=== PATIENT | female | born 1985 | race Caucasian/White ===

== ENCOUNTER 2022-09-02 15:42 | Emergency (ER) | payer BC, SELFPAY ==
[2022-09-02 15:44] VITALS: BP 198/121; PULSE 123; RESP 16; TEMP 36.6; O2SAT 98
[2022-09-02 15:49] VITALS: BP 188/127; PULSE 117
--- NOTE | 2022-09-02 18:00 | ECG_ITS ---
Measurements Intervals [place] Rate: 101 P: 55 SC: 152 QRS: -6 QRSD: 83 T: 31 QT: 336 QTc: 436 Interpretive Statements SINUS TACHYCARDIA POSSIBLE LEFT ATRIAL ENLARGEMENT BORDERLINE ECG NO PREVIOUS ECG AVAILABLE FOR COMPARISON Electronically Signed On 09-03-2022 14:05:54 INTERDISCIPLINARY PROFESSOR by Fausto Franklin M.D.
--- NOTE | 2022-09-02 18:17 | ED.RECABL ---
HPI - Recheck/Abnormal Lab/Rx General Chief Complaint: Recheck/Abnormal Lab/Rx Stated Complaint: elevated BP -- 178/120 from express care Time Seen by Provider: 09/02/22 17:56 Source: patient and RN notes reviewed Mode of arrival: ambulatory Limitations: no limitations History of Present Illness HPI narrative: This is a 36 year old female with history of hypertension who presents for evaluation of elevated blood pressure. PAtient normally takes Labetolol 100 mg daily for her hypertension but she has not taken today. She has been dealing with congestion, sore throat so she went to urgent care for evaluated of strep throat. She was found to have elevated blood pressure so it was recommended for her to come to ER. She states she had sinus headache last night but her headache resolved. She denies chest pain, dizziness, sob, or headache today. She reports her blood pressure is normally elevated like this when she goes to her doctor. She is unsure if she is normally tachycardic, but she denies palpitations or heart racing. Related Data Allergies Allergy/AdvReac Type Severity Reaction Status Date / Time bupropion Allergy Mild RASH Verified 09/02/22 17:58 Sulfa (Sulfonamide Allergy Unknown Unknown Verified 09/02/22 17:58 Antibiotics) PENICILLIN Allergy Unknown Unknown Uncoded 09/02/22 17:58 Review of Systems Constitutional: Constitutional: Denies weakness ENT: Reports nasal congestion and Reports sore throat Cardiovascular: Cardiovascular: Denies syncope, Denies rapid heart rate, Denies irregular heart rhythm, Denies leg edema and Denies dyspnea Respiratory: Respiratory: Denies chest congestion, Denies hemoptysis, Denies excessive phlegm production and Denies dyspnea Gastrointestinal: Gastrointestinal: Denies abdominal pain, Denies hematochezia, Denies diarrhea and Denies vomiting Genitourinary: Genitourinary: Denies hematuria and Denies dysuria Musculoskeletal: Musculoskeletal: Denies joint swelling, Denies loss of height and Denies muscle weakness Neurologic: Denies syncope, Denies focal weakness and Denies weakness PMFSH Past Medical History Medical History Hypertension Social History Social History Smoking status: Never smoker Exam Const: General: no acute distress and alert Nutritional Appearance: well nourished Orientation/consciousness: patient oriented x3 Limitations: no limitations HENMT: Head: normal to inspection Eyes: EOM: EOMs intact bilaterally Chest: Chest palpation & inspection: normal inspection of the chest Resp: Effort & Inspection: normal respiratory effort Auscultation: clear to auscultation bilaterally Cardio: Rate: tachycardic Rhythm: regular rhythm Heart sounds: no murmurs GI: GI Palp: Yes Soft to palpation, No Tenderness to palpation present (GI), No Guarding due to palpation present (GI) and No Rigid due to palpation Auscultation: normal bowel sounds Skin: General skin exam: normal color Rashes: no rashes Wounds: no wounds Neuro: General: patient oriented x3, moves all extremities and CN's II-XI intact bilaterally Cranial nerves: Yes Nystagmus not present Speech: normal speech Gait exam (Neuro): Normal gait present Extrem: General: normal to inspection Psych: Mental Status: mental status grossly normal Affect: normal affect Attitude: cooperative Course Reevaluation(s) Reevaluation #1: PAtient has asymptomatic hypertension. She will be discharged for outpatient treatment. She has antibiotics prescribed for strep throat from the urgent care. She was given oral potassium for low potassium 3.3 Date: 09/02/22 Time: 20:14 Vital Signs Vital signs: Vital Signs Temperature 98 F 09/02/22 15:44 Pulse Rate 123 H 09/02/22 15:44 Respiratory Rate 16 09/02/22 15:44 Blood Pressure 198/121 H 09/02/22 15:44 Pulse Oximetry 98 09/02/22 15:44 Oxygen Delive
[2022-09-02 18:37] LABS: Basophils Percent Auto 0.2 % (0.2-1.2); Eosinophils Absolute Auto 0.1 K/mm3 (0-0.3); Eosinophils Percent Auto 0.3 % (0-4.4); Hematocrit 38.4 % (37.0-47.0); Hemoglobin 13.2 g/dL (12.0-15.0); Immature Granulocyte Absolute 0.04 K/mm3 (0.00-0.031); Immature Granulocyte Percent A 0.3 % (0-0.5); Lymphocytes Absolute Auto 1.63 K/mm3 (0.9-3.2); Lymphocytes Percent Auto 11.2 % (18.3-44.2); Mean Corpuscular HGB Conc 34.4 g/dl (32-36); Mean Corpuscular Hemoglobin 30.8 pg (26-34); Mean Corpuscular Volume 89.5 fl (80-100); Mean Platelet Volume 8.9 fl (7.4-10.4); Monocytes Percent Auto 6.6 % (2.6-8.5); Neutrophils Absolute Auto 11.9 K/mm3 (1.3-6.7); Neutrophils Percent Auto 81.4 % (45.5-73.1); Platelet Count Result 342 k/mm3 (150-375); Red Blood Count 4.29 M/mm3 (4.2-5.4); Red Cell Distribution Width 12.3 % (11.5-14.5); White Blood Count 14.6 K/mm3 (4.5-10.0)
[2022-09-02 18:48] VITALS: PULSE 120
[2022-09-02] MEDS: LABETALOL HCL 100 MG TABLET PO (18:48)
[2022-09-02 18:50] LABS: Platelet Estimate Adequate (Adequate); Schistocytes None Seen (NORMAL)
[2022-09-02 19:26] VITALS: BP 164/119; PULSE 99; RESP 16; O2SAT 100
[2022-09-02 19:53] LABS: Alanine Aminotransferase 21 U/L (6-35); Albumin Level 4.6 g/dL (3.5-5.1); Alkaline Phosphatase 91 U/L (38-126); Anion Gap 5 mmol/L (8-16); Aspartate Amino Transferase 24 U/L (14-36); Bilirubin,Total 0.6 mg/dL (0.2-1.3); Blood Urea Nitrogen 8 mg/dL (7-17); Carbon Dioxide 27 mmol/L (22-30); Chloride 101 mmol/L (98-107); Estimated CRCL calculation 128 ml/min; Estimated Glomerular Filt Rate > 60; Glucose 108 mg/dL (65-110); Potassium 3.3 mmol/L (3.4-5.0); Sodium 133 mmol/L (137-145)
[2022-09-02] MEDS: POTASSIUM CHLORIDE 20 MEQ TABLET 40 MEQ PO (20:45)
== END 2022-09-02 21:00 | disposition home or self-care (01) ==
PROVIDERS: Emergency Provider General Practice; PCP Physician Assistant
DX: I10 Essential (primary) hypertension (principal); E87.6 Hypokalemia; R00.0 Tachycardia, unspecified; R94.31 Abnormal electrocardiogram [ECG] [EKG]
CPT/HCPCS: 36415; 80053; 85025; 85055; 93005; 99283; A9270

== ENCOUNTER 2024-12-23 17:35 | Inpatient (IN) | payer OTHER, SELFPAY ==
[2024-12-23] VITALS (75 sets, daily range): BP systolic 124–162; BP diastolic 72–105; PULSE 72–108; TEMP 36.1–36.6; O2SAT 94–100; BMI 33.5
[2024-12-23 17:18] LABS: Basophils Percent Auto 0.4 % (0.2-1.2); Eosinophils Absolute Auto 0.2 K/mm3 (0-0.3); Eosinophils Percent Auto 2.4 % (0-4.4); Hematocrit 24.2 % (37.0-47.0); Hemoglobin 8.2 g/dL (12.0-15.0); Immature Granulocyte Absolute 0.13 K/mm3 (0.00-0.031); Immature Granulocyte Percent A 1.6 % (0-0.5); Lymphocytes Percent Auto 17.6 % (18.3-44.2); Mean Corpuscular HGB Conc 33.9 g/dl (32-36); Mean Corpuscular Hemoglobin 30.8 pg (26-34); Mean Platelet Volume 8.9 fl (7.4-10.4); Monocytes Absolute Auto 0.7 K/mm3 (0.1-0.6); Monocytes Percent Auto 8.2 % (2.6-8.5); Neutrophils Absolute Auto 5.5 K/mm3 (1.3-6.7); Neutrophils Percent Auto 69.8 % (45.5-73.1); Platelet Count Result 237 k/mm3 (150-375); Red Blood Count 2.66 M/mm3 (4.2-5.4); Red Cell Distribution Width 12.9 % (11.5-14.5); White Blood Count 7.9 K/mm3 (4.5-10.0)
[2024-12-23 17:23] LABS: Add Urine Microscopic? YES; Appearance Urine Cloudy (Clear); Bacteria Urine 1+ /hpf; Bilirubin Urine Negative (Negative); Blood Urine Negative (Negative); Color Urine Yellow (Yellow); Glucose Urine UA Negative (Negative); Ketones Urine Negative (Negative); Leukocyte Esterase Ur 3+ LEU/UL (Negative); Nitrate Urine Negative (Negative); Non Pathogenic Casts 0-2; Protein Urine Trace mg/dL (Negative); RBC Urine 0-2 /hpf (0-2); Specific Grav Ur 1.012 (1.001-1.035); Squamous Epithelial Cell Urine Few /hpf (Few); Urobilinogen Urine 0.2 mg/dL (<2.0); WBC Urine 21-50 /hpf (0-3); pH Urine 5.5 (5.0-9.0)
[2024-12-23 17:29] LABS: Alanine Aminotransferase 44 U/L (6-35); Albumin Level 2.9 g/dL (3.5-5.1); Alkaline Phosphatase 148 U/L (38-126); Anion Gap 5 mmol/L (4-12); Aspartate Amino Transferase 46 U/L (14-36); Bilirubin,Total 0.2 mg/dL (0.2-1.3); Blood Urea Nitrogen 22 mg/dL (7-17); Calcium 8.5 mg/dL (8.4-10.2); Carbon Dioxide 18 mmol/L (22-30); Chloride 109 mmol/L (98-107); Estimated Glomerular Filt Rate > 60; Glucose 81 mg/dL (65-110); Sodium 132 mmol/L (137-145); Total Protein 5.6 g/dL (6.3-8.2); Uric Acid 5.7 mg/dL (2.5-7.5)
--- OUTSIDE RECORDS SUMMARY | 2024-12-23 17:39 | XMS_ITS | Referral Summary ---
Author Organization [address] Address [address] [place] [address] Care Team Providers Care Publishing Systems Analyst Name Role Phone Unknown, Notinfile Primary Care Provider Unavail able Allergies Active Allergy Reactions Criticality Noted Date Comments Bupropion Hives Medium 09/02/2022 Penicillins Anaphylaxis High 11/22/2014 Sulfa (Sulfonamide Antibiotics) Anaphylaxis High Medications norethindrone-e .estradioL-iron (LOESTIN 24 FE) 1 mg-20 mcg (24)/75 mg (4) per tablet Take 1 tablet by mouth daily 11/22/2014 Active labetaloL (NORMODYNE,CHRISTY DATE) 100 mg tablet Take 100 mg by mouth 2 (two) times a day 07/30/2022 Active azithromycin (ZITHROMAX) 250 mg tabletIndicatio ns:Strep throat Take 2 tablets the first day, then 1 tablet daily for 4 days. 6 tablet 09/02/2022 Active Active Problems No known active problems Social History Tobacco Use Types Packs/Day Years Used Date Smoking Tobacco: Never Assessed Comments Unknown Sex and Gender Information Value Date Recorded Sex Assigned at Not on file Legal Sex Female 10:39 PM BINGO USHER Gender Identity Not on file Sexual Orientation Not on file Last Filed Vital Signs Vital Sign Reading Time Taken Comments Blood Pressure 182/118 09/02/2022 3:17 PM BINGO USHER man ual Pulse 126 09/02/2022 2:55 PM BINGO USHER Temperature 36.9 C (98.5 F) 09/02/2022 2:55 PM BINGO USHER Respiratory Rate 18 09/02/2022 2:55 PM BINGO USHER Oxygen Saturation 98% 09/02/2022 2:55 PM BINGO USHER Inhaled Oxygen Concentration - - Weight 80.6 kg (177 lb 9.6 oz) 09/02/2022 2:55 P M BINGO USHER Height 157.5 cm (5' 2) 09/02/2022 2:55 PM BINGO USHER Body Mass Index 32.48 09/02/2022 2:55 PM BINGO USHER Plan of Treatment Not on file Insurance [employer] Care Teams Publishing Systems Analyst Relationship Specialty Start Date End Date Unknown, Notinfile PCP - General 09/02/22
--- OUTSIDE RECORDS SUMMARY | 2024-12-23 17:39 | XMS_ITS | Data Portability ---
Author Organization [facility] [employer], Main Office Address [address] [place] [address] Assessment No assessment recorded. Plan of Treatment Reminders Order Date Submit Date Provider Last Modified By Organization Details Last Modified Time Details Appointments None recorded. Lab TSH + free T4, serum 2022 023 [employer] [facility], [address], [address], [place], [address], 4 08:57:40 lipid panel, serum 2022 023 [employer] [facility], [address], [address], [place], [address], 4 08:57:40 CMP, serum or plasma 2022 023 [employer] [facility], [address], [address], [place], [address], 4 08:57:39 CBC w/ auto diff 2022 023 [employer] [facility], [address], [address], [place], [address], 4 08:57:39 HbA1c (hemoglobi n A1c), blood 2022 023 [employer] [facility], [address], [place], [address], 4 08:57:40 Referral None recorded. Procedures None recorded. Surgeries None recorded. Imaging None recorded. Medication Orders labetalol 200 mg tablet [address] [facility] [address] [facility] [address], [place], [address], 10:56:58 Patient TargetsNo targets recorded. Patient InstructionsNo instructions recorded. Reason for Referral None Reported. Problems Name Problem SNOMED Code Status Onset Date Resolution Date Notes Provider Name and Address Organization Details Recorded Time Benign essential hypertension 5113407 Active 2021 Not Available [facility] 3 22:41:56 Acute left otitis media 256580933 Active 2021 Not Available [facility] 3 22:41:57 Toothache 13985347 Active 2021 Not Available [facility] 3 22:41:57 Problem Notes None recorded. Procedures Surgical History Date Name Laterality Status Provider Name and Address Organization Details Recorded Time removal of wart completed Not Available [facility] 09/05/2022 22:41:37 Imaging Results None recorded. Procedure Notes None recorded. Medical Equipment None Reported. Allergies Allergen ID Allergen Name Allergen Category Reaction Reaction Severity Criticality Documentation Date Start Date Code Code System Note Provider Name and Address Organization Details Recorded Time 49909 Wellbutri n medicatio n hives Not available Not available 09/05/2022 19329 RxNorm Not Available [facility] 3 22:42:16 68345 Substance with sulfonami de structure and antibacte rial mechanism of action (substanc e) medicatio n Not available Not available Not available 09/05/2022 22956 8003 SNOMED teste d for aller gy as child Not Available [facility] 3 22:42:16 17440 Product containin g penicilli n (product) medicatio n Not available Not available Not available 09/05/2022 70917 8001 SNOMED teste d for aller gy as child Not Available [facility] 3 22:42:16 Medications Name Sig Start Date Stop Date Status Note LastModified by Organization Details LastModified Time binaxnow cov kit home manuel 09/10 completed Not Available Not Available Not Available flowflex kit test 09/10 completed Not Available Not Available Not Available labetalol 200 mg tablet Take 1 tablet by mouth twice daily 2022 active Not Available Not Available Not Avai lable clindamycin HCl 300 mg capsule Take 1 capsule every 6 hours by oral route. 05/13 completed Not Available Not Available Not Available azithromyci n 250 mg tablet TAKE 2 TABLETS BY MOUTH ON DAY 1, AND THEN TAKE 1 TABLET BY MOUTH ONCE A DAY ON DAY 2 THROUGH DAY 5 09/10 completed Not Available Not Available Not Available ofloxacin 0.3 % ear drops INSTILL 5 DROPS INTO RIGHT EAR EVERY 12 HOURS FOR 7 DAYS 05/17 completed Not Available Not Available Not Available methylpredn isolone 4 mg tablets in a dose pack TAKE BY MOUTH DIRECTED ON INSIDE OF PACKAGE 09/10 completed Not Available Not Available Not Available labetalol 100 mg tablet TAKE 1 TABLET BY MOUTH TWICE DAILY 09/11 completed Not Available Not Available Not Available cefdinir 300 mg capsule Take 1 capsule every 12 hours by oral route. 09/10 completed Not Available Not Available Not Available doxycycline hyclate 100 mg tablet TAKE 1 TABLET BY MOUTH TWICE DAILY FOR 10 DAYS 05/13 completed Not Available Not Available Not Available multivitami n women's otc, takes daily 11/13 completed Not Available Not Available Not Available Lo Loestrin Fe 1 mg-10 mcg (24)/10 mcg (2) tablet TAKE 1 TABLET BY MOUTH ONCE DAILY CONTINUOU S. active Not Available Not Available No t Available ID NOW COVID-19 Test Kit TEST DIRECTED TODAY 11/13 completed Not Available Not Available Not Available BinaxNOW COVID-19 Ag Self Test kit TEST DIRECTED TODAY 09/10 completed Not Available Not Available Not Available Vitals Date Recorded Body height Body temperature Body mass index (BMI) Body weight Respiratory rate Oxygen saturation Oxygen saturation in Arterial blood by Pulse oximetry Heart rate Systolic blood pressure Diastolic blood pressure Provider Name and Address Organization Details Last Updated DateTime 3 157.48 cm 97.3 [degF] 32.5 kg/m2 00664.6 5 g 16 /min 99 % 99 % 82 /min 150 mm[Hg] 98 mm[Hg] NOEL Guzman [place] - [facility] [employer] 3 10:33:35 Date Recorded Body mass index (BMI) Systolic blood pressure Diastolic blood pressure Systolic blood pressure Diastolic blood pressure Provider Name and Address Organization Details Last Updated DateTime 10/16/2022 31.8 kg/m2 108 mm[Hg] 70 mm[Hg] 104 mm[Hg] 70 mm[Hg] TYLER Mendez [address] [facility], [address], [place], [address], [facility] [employer] 3 11:48:08 Date Recorded Body height Body weight Body temperature Heart rate Oxygen saturation Oxygen saturation in Arterial blood by Pulse oximetry Systolic blood pressure Diastolic blood pressure Provider Name and Address Organization Details Last Updated DateTime 3 157.48 cm 81313.0 7 g 97.6 [degF] 84 /min 99 % 99 % 134 mm[Hg] 84 mm[Hg] Monse Adamson RN [facility] [employer] 3 11:37:56 Date Recorded Body mass index (BMI) Body height Oxygen saturation Oxygen saturation in Arterial blood by Pulse oximetry Heart rate Respiratory rate Body temperature Body weight Systolic blood pressure Diastolic blood pressure Provider Name and Address Organization Details Last Updated DateTime 2 32.3 kg/m2 157.48 cm 98 % 98 % 92 /min 16 /min 97.6 [degF] 26933.4 1 g 128 mm[Hg] 88 mm[Hg] Not Available [facility] 3 22:41:52 Date Recorded Body height Body mass index (BMI) Body weight Body temperature Heart rate Oxygen saturation Oxygen saturation in Arterial blood by Pulse oximetry Systolic blood pressure Diastolic blood pressure Provider Name and Address Organization Details Last Updated DateTime 3 157.48 cm 31.3 kg/m2 77874.3 g 97.8 [degF] 78 /min 99 % 99 % 122 mm[Hg] 84 mm[Hg] Monse Adamson RN [facility] [employer] 3 12:27:05 Date Recorded Body height Oxygen saturation Oxygen saturation in Arterial blood by Pulse oximetry Heart rate Body temperature Body weight Systolic blood pressure Diastolic blood pressure Provider Name and Address Organization Details Last Updated DateTime 2 157.48 cm 97 % 97 % 92 /min 97.8 [degF] 76234.3 7 g 130 mm[Hg] 90 mm[Hg] Not Available [facility] 22:41:52 Social History Question Answer Notes LastModified by Organizat ion Details LastModified Time Tobacco Smoking Status Former Smoker Not Available Critical access hospital 09/05/2022 22:41:34 What Is Your Level Of Caffeine Consumption? Moderate [id number] Information not available 09/05/2022 How Much Tobacco Do You Chew? None [id number] Information not available 09/05/2022 In The 14 Days Before Symptom Onset, Have You Had Close Contact With A Laboratory-confirm ed COVID-19 While That Case Was Ill? No [id number] 9101 Information not available 09/05/2022 In The 14 Days Before Symptom Onset, Have You Had Close Contact With A Person Who Is Under Investigation For COVID-19 While That Person Was Ill? No [id number] Information not available 09/05/2022 What Type Of Diet Are You Following? REGULAR [id number].[id number] 0682 Information not available 09/05/2022 Which Illicit Or Recreational Drugs Have You Used? None [id number].101150 9032 Information not available 09/05/2022 Have There Been Any Changes To Your Family Or Social Situation? No [id number].477317 3494 Information not available 09/05/2022 Do You Use Insect Repellent Routinely? No [id number].[id number] 2419 Information not available 09/05/2022 What Is Your Relationship Status? [id number].[id number] 8789 Information not available 09/05/2022 Do You Use Your Seat Belt Or Car Seat Routinely? Yes [id number].[id number] 6553 Information not available 09/05/2022 Do You Have Smoke And Carbon Monoxide Detectors In Your Home? Yes MIGRATION.940085 8603 Information not available 09/05/2022 At What Age Did You Start Smoking Tobacco? 16 [id number].[id number] 1652 Information not available 09/05/2022 How Much Tobacco Do You Smoke? No MIGRATION.[id number] 3771 Information not available 09/05/2022 Do You Use Sunscreen Routinely? Yes [id number].046923 4148 Information not available 09/05/2022 Have You Recently Traveled Abroad? No MIGRATION.150710 1379 Information not available 09/05/2022 Do You Have Any Dietary Restrictions? No MIGRATION.041549 1497 Information not available 09/05/2022 Sex: Unknown Functional Status Question Answer Note LastModified by Organizat ion Details LastModified Time Do you use any illicit or recreational drugs? No MIGRATION.248894 6841 Information not available 09/05/2022 Do you or have you ever used any other forms of tobacco or nicotine? No MIGRATION.078933 8866 Information not available 09/05/2022 What is your level of alcohol consumption? Occasional MIGRATION.459164 0853 Information not available 09/05/2022 Do you or have you ever used smokeless tobacco? Never used smokeless tobacco MIGRATION.100692 1285 Information not available 09/05/2022 Are you currently employed? 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 Never used electronic cigarettes MIGRATION.638940 1149 Information not available 09/05/2022 What is your exercise level? None MIGRATION.201045 5642 Information not available 09/05/2022 Mental Status None recorded. Family History Relationship Description Onset Age of this Age Resolved Age Notes LastModified by Organization Details LastModified Time Mother Malignant tumor of breast [id number] Not available 09/05/2022 22:41:38 Mother Excision of skin carcinoma [id number] Not available 09/05/2022 22:41:38 Father Type 2 diabetes mellitus [id number] Not available 09/05/2022 22:41:38 Father Malignant tumor of stomach [id number] Not available 09/05/2022 22:41:38 Medical History Condition Response HYPERTENSION Y Gynecological History Statement/Question Response Menses Monthly N Abnormal Pap N Date of Last Pap 08/10/2020 Duration of Flow (days) 5 Date of LMP 08/14/2020 Sexually Active? Y Obstetrics History GPAL:G 1 P 0 0 0 1 Type Value Living 1 Total 1 Past Encounters Encounter ID Performer Location Encounter Start Date Encounter Closed Date Diagnosis/Indication Diagnosis SNOMED-CT Code Diagnosis ICD10 Code Diagnosis Note [id number] Renny Razo MD [facility] [place] [address] [place] [address] 11/13/2021 00:00:00 12/05/2021 18:54:29 [id number] TYLER Mendez [facility] [place] [address] [place] [address] 05/17/2022 00:00:00 06/06/2022 21:13:55 [id number] TYLER Mendez [facility] [place] [address] [place] [address] 09/11/2022 10:25:26 09/11/2022 11:00:09 Benign essential hypertension 0618744 I10 start low dose labetalol 200mg bid [id number] TYLER Mendez [facility] [place] [address] [place] [address] 10/16/2022 11:32:54 10/16/2022 11:47:34 Benign essential hypertension 6474483 I10 stable on labetalol 200mg bid , continue dosing. [id number] TYLER Mendez [facility] [place] [address] [place] [address] 05/14/2023 12:23:15 05/14/2023 12:47:47 Benign essential hypertension 5406374 I10 stable on labetalol 200mg bid , continue dosing. Cholesterol screening 27 4434568 Z13.220 fasting labs ordered Diabetes m ellitus screening 027604820 Z13.1 screening a1c due Long-term drug therapy 068388973 Z79.899 routine cbc and cmp due Thyroid di sorder screening 019961462 Z13.29 screening thyroid panel due Health Concerns Section Related Observation LastModified by Organization Detai ls LastModified Time None Recorded Concern Status LastModified by Organization Details LastModified Time None Recorded Advance Directives Directive None Recorded Payers Insurance Date Sequence Insurance Name Policy Number Policy Castellanos Covered Member ID Castellanos Member ID Guarantor Name 08/10/2024 1 [place] [employer] [place] [employer] Rachael Mosquera [id number] Rachael Mosquera 08/10/2024 1 [place] [id number] Rachael Mosquera [id number] Rachael Mosquera 08/10/2024 1 [facility] (MEDICAID HMO) [id number] Rachael Mosquera [id number] Rachael Canchola Demetri 08/10/2024 [facility] Rachael Mosquera SELF SELF Rachael Mosquera Notes Date Note Type Note Provider Name and Address Organization Details Recorded Time 2 text/html HypertensionReported bypatient.Duration:has noted for years Onset/Timing:better Alleviating Factors:medication Self Care:not under emotional stress Associated Symptoms:no shortness of breath; no fatigue; no palpitations; no decline in exercise capacity; no snoring Not Available Remember The Member 12/05/2021 18:54:29 3 text/html Generic HPI TemplateReported bypatient.Notes:Pt is here for an e/r f/u from 09/02/22 for elevated BP. They did EKG and labs and everything looked ok but potassium was low so they gave her potassium. Records are in the room w/her. Today she is feeling fine. She has been checking her BP and it ranges between 155-165/100-105. No symptoms w/BP readings. This morning it was 149/98 She never got the labs ordered(that are open in old system) but says the hospital did labs. TYLER Mendez [address], [address], [place], [address], Remember The Member 09/30/2022 18:47:17 3 text/html HypertensionReported bypatient.Onset/Timing:be tter Alleviating Factors:medication Associated Symptoms:no shortness of breath; no fatigue; no palpitations; no decline in exercise capacity; no snoringNotes:on labetalol 200mg bid TYLER Mendez [address], [address], [place], [address], Remember The Member 11/03/2022 19:29:24 3 text/html HypertensionReported bypatient.Onset/Timing:be tter Alleviating Factors:medication Associated Symptoms:no shortness of breath; no fatigue; no palpitations; no decline in exercise capacity; no snoringNotes:on labetalol 200mg bid TYLER Mendez [address] [facility], [facility] [address], [place], [address], [facility] 06/07/2023 00:15:39 OBGyn Episode No OBEpisode recorded.
--- OUTSIDE RECORDS SUMMARY | 2024-12-23 17:39 | XMS_ITS | Clinical Summary ---
Author Organization [address] Address [address] [place] [address] Care Team Providers Care Freight Coordinator Name Role Phone Unknown, Notinfile Primary Care [...] on file Legal Sex Female 10:39 PM PESTICIDE APPLICATOR Gender Identity Not on file Sexual Orientation Not on file Obstetrics History Last Filed Vital Signs Vital Sign Reading Time Taken Comments Blood Pressure 182/118 09/02/2022 3:17 PM PESTICIDE APPLICATOR man ual Pulse 126 09/02/2022 2:55 PM PESTICIDE APPLICATOR Temperature 36.9 C (98.5 F) 09/02/2022 2:55 PM PESTICIDE APPLICATOR Respiratory Rate 18 09/02/2022 2:55 PM PESTICIDE APPLICATOR Oxygen Saturation 98% 09/02/2022 2:55 PM PESTICIDE APPLICATOR Inhaled Oxygen Concentration - - Weight 80.6 kg (177 lb 9.6 oz) 09/02/2022 2:55 P M PESTICIDE APPLICATOR Height 157.5 cm (5' 2) 09/02/2022 2:55 PM PESTICIDE APPLICATOR Body Mass Index 32.48 09/02/2022 2:55 PM PESTICIDE APPLICATOR Plan of Treatment Health Maintenance Due Date Last Done Comments Cervical Cancer Screening 1986 Depression Screening 1986 Hepatitis C Screening 1986 DTaP/Tdap/Td Vaccine (1 - Tdap) 1997 Varicella Vaccines (1 of 2 - 13+ 2-dose series) 10/13/1999 Hepatitis B Screening 2004 Regular Well Visit/Exam 18-64 2004 Covid-19 Vaccine (2023-2 5 season) 2024 05/28/2021, 09/15/2020 Influenza Vaccine (Season Ended) 2025 05/28/2021 HPV Vaccines Aged Out No longer eligi ble based on patient's age to complete this topic Pneumococcal vaccine <65 Aged Out No longer eligible based on patient's age to complete this topic Insurance [employer] [place] Care Teams Freight Coordinator Relationship Specialty Start Date End Date Unknown, Notinfile PCP - General 09/02/22
--- OUTSIDE RECORDS SUMMARY | 2024-12-23 17:39 | XMS_ITS | Clinical Summary ---
Author Organization [facility] Address [address] [place] [address] Phone Care Team Providers Care Staffing Account Manager Name Role Phone Unavailable Primary Care Provider Unavailabl e Allergies Active Allergy Reactions Criticality Noted Date Comments Penicillins Anaphylaxis 11/22/2014 Sulfa Antibiotics Anaphylaxis 11/22/2014 Medications No known medications Active Problems No known active problems Family History Medical History Relation Name Comments Cancer Father Diabetes Father Cancer Mother Relation Name Status Comments Father Alive Mother Alive Social History Tobacco Use Types Packs/Day Years Used Date Smoking Tobacco: Never Smokeless Tobacco: Never Tobacco Cessation:Counseling Given: No Alcohol Use Standard Drinks/Week Comments Yes 0 (1 standard drink = 0.6 oz pur e alcohol) very little Sexually Active Control Partners Comments Yes None Male Comments Unknown Sex and Gender Information Value Date Recorded Sex Assigned at Not on file Legal Sex Female 12:07 AM CDT Gender Identity Not on file Sexual Orientation Not on file Last Filed Vital Signs Vital Sign Reading Time Taken Comments Blood Pressure 128/90 02/25/2017 3:00 PM CDT Pulse 94 02/25/2017 3:00 PM CDT Temperature 37.1 C (98.7 F) 02/25/2017 3:00 PM CDT Respiratory Rate 20 02/25/2017 3:00 PM CDT Oxygen Saturation 98% 02/25/2017 3:00 PM CDT Inhaled Oxygen Concentration - - Weight 70.2 kg (154 lb 11.2 oz) 02/25/2017 3:00 PM CDT Height 157.5 cm (5' 2) 02/25/2017 3:00 PM CDT Body Mass Index 28.3 02/25/2017 3:00 PM CDT Plan of Treatment Health Maintenance Due Date Last Done Comments Hepatitis C Virus (HCV) Screening 1986 TdaP Immunization 1986 Human Papillomavirus (HPV) Immunization (1 - 3-dose series) 2001 Hepatitis B Immunization (1 of 3 - 19+ 3-dose series) 2005 SARS-COV-2 Immunization ( - 2023- season) 2024 Influenza Immunization (Seas on Ended) 2025 Respiratory Syncytial Virus (RSV) Immunization (Adult) (1 - 1-dose 75+ series) 2061 Meningococcal Immunization (ACWY) Aged Out No longer eligible based on patient's age to complete this topic Pneumococcal Immunization Combined Aged Out No longer eligible based on patient's age to complete this topic Rotavirus Immunization Aged Out No lo nger eligible based on patient's age to complete this topic [place] [address] [address]
--- OUTSIDE RECORDS SUMMARY | 2024-12-23 17:39 | XMS_ITS | Data Portability ---
Author Organization [facility] Oz CASTRO Address [address] [place] [address] Care Team Providers Care Nurses Aide Name Role Phone RADHA BABCOCK Primary Care Provider Unavailab le Assessment No assessment recorded. Plan of Treatment Reminders Order Date Submit Date Provider Last Modified By Organization Details Last Modified Time Details Appointments None record ed. Lab None record ed. Referral None record ed. Procedures None record ed. Surgeries None record ed. Imaging None record ed. Medication Orders None record ed. Patient TargetsNo targets recorded. Patient Instructions Encounter Date Encounter Id Patient Instructions Last Modified By Organization Details Last Modified Time 08/27/2024 [id number] A healthy lifestyle: care instructions [email or web address] Not available 09/07/2024 09:12:45 Reason for Referral None Reported. Problems Name Problem SNOMED Code Status Onset Date Resolution Date Notes Provider Name and Address Organization Details Recorded Time Body mass index 30+ - obesity 306287520 Active 2024 Kevin Leach MA null, [place] - [facility] 5 15:18:47 Benign essential hypertension 0335648 Active 2024 TYLER Mendez Attn: Cynthia burch,[address] [place], [address], [facility] - [facility] 5 15:38:29 Long-term drug therapy Active 2024 TYLER Mendez Attn: Cynthia burch,[address] [facility], [place], [address], [facility] - [facility] 5 15:38:41 Problem Notes None recorded. Medical Equipment None Reported. Allergies Allergen ID Allergen Name Allergen Category Reaction Reaction Severity Criticality Documentation Date Start Date Code Code System Note Provider Name and Address Organization Details Recorded Time 193245 Substance with sulfonami de structure and antibacte rial mechanism of action (substanc e) medicatio n Not available Not available Not available 08/27/2024 34885 8003 SNOMED LE Wilson, [facility] 15:11:44 327056 bupropion Not available Not available Not available Not available 08/27/2024 47618 RxNorm LE Wilson, [facility] 15:11:50 061171 Product containin g penicilli n (product) medicatio n Not available Not available Not available 08/27/2024 65556 8001 LE Alston, [facility] 15:11:54 Medications Name Sig Start Date Stop Date Status Note LastModified by Organization Details LastModified Time labetalol 200 mg tablet one tab po bid 025 active Not Available Not Available Not Avai lable active Not Available Not Avai lable Not Available Lo Loestrin Fe 1 mg-10 mcg (24)/10 mcg (2) tablet TAKE 1 TABLET BY MOUTH ONCE DAILY CONTINUO US. 08/27 completed Not Available Not Available Not Available Vitals Date Recorded Systolic blood pressure Diastolic blood pressure Provider Name and Address Organization Details Last Updated DateTime 08/27/2024 120 mm[Hg] 80 mm[Hg] TYLER Mendez Attn: Accounting,[address] [place], [address], [place] - [place] 08/27/2024 15:38:17 Date Recorded Body weight Body mass index (BMI) Body height Oxygen saturation Oxygen saturation in Arterial blood by Pulse oximetry Heart rate Respiratory rate Systolic blood pressure Diastolic blood pressure Systolic blood pressure Diastolic blood pressure Provider Name and Address Organization Details Last Updated DateTime 67822.6 6 g 31.7 kg/m2 158.12 cm 99 % 99 % 84 /min 20 /min 116 mm[Hg] 80 mm[Hg] 122 mm[Hg] 82 mm[Hg] LE Wilson [facility] 15:20:57 Social History Question Answer Notes LastModified by Organizat ion Details LastModified Time Tobacco Smoking Status Former Smoker Kevin Leach, [facility], [place] - [place] 08/27/2024 15:12:51 Do You Have An Advance Directive? No Information not available 08/27/2024 Are You Blind Or Do You Have Difficulty Seeing? No Information not available 08/27/2024 What Is Your Level Of Caffeine Consumption? Occasional Coffee Information not available 08/27/2024 In The 14 Days Before Symptom Onset, Have You Had Close Contact With A Laboratory-confir med COVID-19 While That Case Was Ill? No Information not available 08/27/2024 In The 14 Days Before Symptom Onset, Have You Had Close Contact With A Person Who Is Under Investigation For COVID-19 While That Person Was Ill? No Information not available 08/27/2024 Have You Been To An Area Known To Be High Risk For COVID-19? No Information not available 08/27/2024 Are You Deaf Or Do You Have Serious Difficulty Hearing? No Information not available 08/27/2024 What Type Of Diet Are You Following? VEGETARIAN Information not available 08/27/2024 Are There Any Guns Present In Your Home? No Information not available 08/27/2024 What Was The Date Of Your Most Recent Tobacco Screening? 08/27/2024 Information not available 08/27/2024 Do You Use Your Seat Belt Or Car Seat Routinely? Yes Information not available 08/27/2024 Do You Have Smoke And Carbon Monoxide Detectors In Your Home? Yes Information not available 08/27/2024 Do You Use Sunscreen Routinely? Yes In The Summer Information not available 08/27/2024 Sex: Female Functional Status Question Answer Note LastModified by Organization D etails LastModified Time Are you currently employed? Yes Information not available 08/27/2024 Are you able to care for yourself? Yes Information n ot available 08/27/2024 What is your exercise level? None Information not available 08/27/2024 Mental Status None recorded. Family History Relationship Description Onset Age of this Age Resolved Age Notes LastModified by Organization Details LastModified Time Mother Family history of breast cancer tcarterma Not available 2024 15:12:21 Mother Osteoporosis [email or web address] Not avai lable 08/27/2024 15:12:41 Father Diabetes mellitus tcarterma Not available 2024 15:12:26 Father Hypertensive disorder tcarterma Not available 2024 15:12:36 Sister Hypertensive disorder tcarterma Not available 2024 15:12:36 Medical History Condition Response Coronary Artery Disease N Other N High Blood Pressure Y Atrial Fibrillation N Kidney or Bladder Problems N Thyroid Problems N GI Problems N Depression N COPD N Blood Clots N Have you had a mammogram in the last yea r? N Skin Problems N Anemia N Heart Attack (NM) N Anxiety Disorder N Diabetes N Muscle, Joint, or Bone Problems N Seizures/Epilepsy N Have you had a colonoscopy in the last 1 0 years? N Acid Reflux (GERD) N Cancer N Stroke N Asthma N Allergies Y Have you had a PSA blood test in the las t year? N High Cholesterol N Hepatitis N Liver Disease N Headaches N Heart Failure N Osteoporosis N Gynecological History Statement/Question Response Menses Monthly N Current Control Method None Date of LMP 04/01/2023 Obstetrics History GPAL:G 1 P 1 0 0 1 Type Value Full Term 1 Induced 0 Spontaneous 0 Premature 0 Living 1 Total 1 Immunizations Vaccine Type Date Status Note Provider Nam e and Address Organization Details Recorded Time COVID-19, mRNA, LNP-S, PF, 30 mcg/0.3 mL dose 05/28/2021 completed LE Wilson, [place] - [facility] 08/27/2024 15:18:09 COVID-19 vaccine, vector-nr, rS-Ad26, PF, 0.5 mL 09/15/2020 completed LE [place], [place] - [facility] 08/27/2024 15:18:09 Influenza, split virus, quadrivalent, PF 05/28/2021 completed LE Wilson, [place] - [facility] 08/27/2024 15:18:09 Past Encounters Encounter ID Performer Location Encounter Start Date Encounter Closed Date Diagnosis/Indication Diagnosis SNOMED-CT Code Diagnosis ICD10 Code Diagnosis Note [id number] Renny Razo MD [facility] [address] [place] [address] [place] [address] 08/27/2024 14:29:44 08/27/2024 15:44:13 Body mass index 30+ - obesity 034874570 Z68.31 BMI is 31.7 currently Adult heal th examination 140502735 Z00.00 Annual wellness exam completed there are no need for labs because she has been undergoing care and evaluation 17967189 Z33.1 21 weeks. Benign ess ential hypertension 1917407 I10 120/80 stable. Long-term drug therapy 539821140 Z79.891 Obesity 906224191 E66.9 Health Concerns Section Related Observation LastModified by Organization Detai ls LastModified Time None Recorded Concern Status LastModified by Organization Details LastModified Time None Recorded Advance Directives Directive N: Payers Insurance Date Sequence Insurance Name Policy Number Policy Castellanos Covered Member ID Castellanos Member ID Guarantor Name 08/27/2024 1 [place] [employer] Rachael Mosquera [id number] Rachael Jay 09/07/2024 1 [facility] (MEDICAID HMO) [id number] Rachael Mosquera [id number] Rachael Jay Notes Date Note Type Note Provider Name and Address Organization Details Recorded Time 08/27/2024 text/html Patient is here for annual wellness exam. She is currently , 21 weeks. She is up-to-date on her care and evaluations and labs. She does have underlying hypertension in which she continues labetalol dosing. She is on 200 mg twice daily and there have been no acute concerns. TYLER Mendez Attn: Accounting,[address] [facility], [place], [address], [facility] [place] [place] 09/07/2024 09:13:00 OBGyn Episode No OBEpisode recorded.
[2024-12-23 17:55] LABS: Creatinine Urine 70.5 mg/dL; Total Protein Urine Random 21 mg/dL
[2024-12-23] MEDS: LACTATED RINGERS 1,000 ML 125 ML IV CONT (19:38)
[2024-12-23 19:40] LABS: Syphilis IgG/IgM Antibody Non-Reactive (Nonreactive)
[2024-12-23] MEDS: ceFAZolin 2 GM/D5W 50 ML 2 GM/50 ML BAG IVPB (19:40)
[2024-12-23] MEDS: OXYTOCIN 30 UNITS/NS 500 ML 30 UNITS/500 ML BAG IV CONT (20:07)
[2024-12-23] MEDS: LABETALOL HCL 100 MG TABLET 200 MG PO (22:03)
[2024-12-24] VITALS (73 sets, daily range): BP systolic 104–157; BP diastolic 58–110; PULSE 63–106; RESP 16–18; TEMP 36.7–37.1; O2SAT 91–100
--- NOTE | 2024-12-24 00:24 | P.PNAN_ITS ---
Anes - Eval Pre Procedure Procedure: labor epidural Date/Time: 12/24/24 00:24 Surgeon: radhames Preop Diagnosis: pain during labor Pre Op Diagnosis: IOL Patient Data Age: 39 Gender: F Height: 1.57 m Weight: 83 kg Last Vital Signs Pulse 82 12/23/24 23:46 BP 135/85 12/23/24 23:46 Pulse Ox 98 12/24/24 00:10 Allergies Allergy/AdvReac Type Severity Reaction Status Date / Time bupropion Allergy Mild RASH Verified 12/16/24 15:51 Sulfa (Sulfonamide Allergy Unknown Unknown Verified 12/23/24 22:54 Antibiotics) PENICILLIN Allergy Unknown Unknown Uncoded 12/23/24 22:54 Home Medications ?Medication ?Instructions ?Recorded ?Confirmed ?Type labetalol 100 mg tablet 200 mg PO Q12H 12/16/24 12/23/24 History vit no.95-ferrous 1 tablet PO DAILY 12/16/24 12/23/24 History fumarate 28 mg-folic acid 800 mcg tablet () Laboratory Tests 12/23/24 12/23/24 17:03 18:54 WBC 7.9 K/mm3 (4.5-10.0) RBC 2.66 L M/mm3 (4.2-5.4) Hgb 8.2 L D g/dL (12.0-15.0) Hct 24.2 L % (37.0-47.0) MCV 91.0 fl (80-100) MCH 30.8 pg (26-34) MCHC 33.9 g/dl (32-36) RDW 12.9 % (11.5-14.5) Plt Count 237 k/mm3 (150-375) MPV 8.9 fl (7.4-10.4) Immature Gran % (Auto) 1.6 H % (0-0.5) Neut % (Auto) 69.8 % (45.5-73.1) Lymph % (Auto) 17.6 L % (18.3-44.2) Reeves % (Auto) 8.2 % (2.6-8.5) Eos % (Auto) 2.4 % (0-4.4) Baso % (Auto) 0.4 % (0.2-1.2) Lymph # (Auto) 1.40 K/mm3 (0.9-3.2) Reeves # (Auto) 0.7 H K/mm3 (0.1-0.6) Eos # (Auto) 0.2 K/mm3 (0-0.3) Baso # (Auto) 0.0 K/mm3 (0.0-0.1) Abs Immat Gran (auto) 0.13 H K/mm3 (0.00-0.031) Absolute Neuts (auto) 5.5 K/mm3 (1.3-6.7) Absolute Nucleated RBC 0.000 K/mm3 (0.0-0.012) Nucleated RBC % 0.0 % (0.0-0.2) Sodium 132 L mmol/L (137-145) Potassium 4.0 mmol/L (3.4-5.0) Chloride 109 H mmol/L (98-107) Carbon Dioxide 18 L mmol/L (22-30) Anion Gap 5 mmol/L (4-12) BUN 22 H D mg/dL (7-17) Creatinine 0.93 mg/dL (0.7-1.0) Estim Creat Clear Calc Not Reportable Estimated GFR > 60 (59 - ) Glucose 81 mg/dL (65-110) Uric Acid 5.7 mg/dL (2.5-7.5) Calcium 8.5 mg/dL (8.4-10.2) Total Bilirubin 0.2 mg/dL (0.2-1.3) AST 46 H U/L (14-36) ALT 44 H U/L (6-35) Alkaline Phosphatase 148 H U/L (38-126) Total Protein 5.6 L g/dL (6.3-8.2) Albumin 2.9 L g/dL (3.5-5.1) Urine Color Yellow (Yellow) Urine Appearance Cloudy H (Clear) Urine pH 5.5 (5.0-9.0) Ur Specific [place] 1.012 (1.001-1.035) Urine Protein Trace mg/dL (Negative) Urine Glucose (UA) Negative mg/dL (Negative) Urine Ketones Negative mg/dL (Negative) Ur Blood (Man) Negative (Negative) Urine Nitrate Negative (Negative) Urine Bilirubin Negative (Negative) Urine Urobilinogen 0.2 mg/dL (<2.0) Leukocyte Esterase Rfl 3+ H WAQAS/UL (Negative) Urine RBC 0-2 /hpf (0-2) Urine WBC 21-50 H /hpf (0-3) Ur Squamous Epith Cells Few /hpf (Few) Urine Bacteria 1+ H /hpf Urine Casts 0-2 U Random Total Protein 21 mg/dL Urine Creatinine 70.5 mg/dL Protein/Creat Ratio 2 0.30 H mg/mg (0-0.20) Syphilis IgG/IgM Ab Non-reactive (Nonreactive) Blood Type O Positive Antibody Screen Negative Patient hx anesthesia problems: none Family hx anesthesia problems: none Results Review: All pre-operative results and documents have been reviewed as part of the pre- operative evaluation. [facility] Past Medical History Medical History (Updated 12/24/24 @ 00:24 by Flor Fontaine CRNA) IUP (intrauterine ), incidental Hypertension Family History Family History (Updated 12/16/24 @ 15:39 by Nargis Norton RN) Father Diabetes mellitus Grandparent Acute myocardial infarction Other Cancer Social History Social History Smoking status: Never smoker Substance use: never Do You Feel Safe in your Home?: Yes Lack of Transportation: No Lack of Food: Never True Current Housing: I Have Housing Concerned About Future Housing: No Difficulty Paying Gas/Electric Bills: No Difficulty Paying for Meds: No Currently Unemployed: No Education: Bachelor's Degree Difficulty w/ Childcare or Family Care: No Spiritual care concerns: No Exam Day of Procedure 12/24/24 00:24
[2024-12-24] MEDS: ONDANSETRON INJ 4 MG/2 ML VIAL IV PUSH (01:48)
[2024-12-24] MEDS: OXYTOCIN 30 UNITS/NS 500 ML 30 UNITS/500 ML BAG 999 UNITS IV CONT (03:09)
--- NOTE | 2024-12-24 03:16 | PM.IMHP ---
H&P: HPI History of Present Illness Date/Time: 12/24/24 03:16 Chief Complaint: Elevated blood pressure at term Narrative: This is a 39-year-old 2 para 1 whose last menstrual period gives an EDC of 01/05/2025 presents at 38 weeks gestation with elevated blood pressure she suffers from chronic hypertension has been on labetalol 100 b.i.d. today her liver enzymes were mildly elevated with elevated creatinine. Review of Systems Constitutional: Constitutional: Denies weakness ENT: Reports nasal congestion and Reports sore throat Cardiovascular: Cardiovascular: Denies syncope, Denies rapid heart rate, Denies irregular heart rhythm, Denies leg edema and Denies dyspnea Respiratory: Respiratory: Denies chest congestion, Denies hemoptysis, Denies excessive phlegm production and Denies dyspnea Gastrointestinal: Gastrointestinal: Denies abdominal pain, Denies hematochezia, Denies diarrhea and Denies vomiting Genitourinary: Genitourinary: Denies hematuria and Denies dysuria Musculoskeletal: Musculoskeletal: Denies joint swelling, Denies loss of height and Denies muscle weakness Neurologic: Denies syncope, Denies focal weakness and Denies weakness PMFSH Past Medical History Medical History IUP (intrauterine ), incidental Hypertension Family History Family History Father Diabetes mellitus Grandparent Acute myocardial infarction Other Cancer Social History Social History Smoking status: Never smoker Substance use: never Do You Feel Safe in your Home?: Yes Lack of Transportation: No Lack of Food: Never True Current Housing: I Have Housing Concerned About Future Housing: No Difficulty Paying Gas/Electric Bills: No Difficulty Paying for Meds: No Currently Unemployed: No Education: Bachelor's Degree Difficulty w/ Childcare or Family Care: No Spiritual care concerns: No Meds Home Medications and Allergies Home Medications ?Medication ?Instructions ?Recorded ?Confirmed ?Type labetalol 100 mg tablet 200 mg PO Q12H 12/16/24 12/23/24 History vit no.95-ferrous 1 tablet PO DAILY 12/16/24 12/23/24 History fumarate 28 mg-folic acid 800 mcg tablet () Allergies Allergy/AdvReac Type Severity Reaction Status Date / Time bupropion Allergy Mild RASH Verified 12/16/24 15:51 Sulfa (Sulfonamide Allergy Unknown Unknown Verified 12/23/24 22:54 Antibiotics) PENICILLIN Allergy Unknown Unknown Uncoded 12/23/24 22:54 Vital Signs Vital Signs - 24 hr 12/23/24 17:03 12/23/24 17:04 12/23/24 17:15 Pulse Rate 77 76 86 Blood Pressure 134/85 144/93 H Blood Pressure [Right Arm] 134/85 Pulse Oximetry 12/23/24 17:30 12/23/24 17:45 12/23/24 18:15 Pulse Rate 72 74 84 Blood Pressure 135/88 134/90 157/102 H Blood Pressure [Right Arm] Pulse Oximetry 12/23/24 18:30 12/23/24 19:24 12/23/24 19:40 Pulse Rate 77 76 Blood Pressure 162/100 H 151/89 H Blood Pressure [Right Arm] Pulse Oximetry 99 12/23/24 19:45 12/23/24 19:46 12/23/24 19:50 Pulse Rate 73 Blood Pressure 140/90 Blood Pressure [Right Arm] Pulse Oximetry 99 99 12/23/24 19:55 12/23/24 20:00 12/23/24 20:01 Pulse Rate 83 Blood Pressure 137/95 H Blood Pressure [Right Arm] Pulse Oximetry 99 99 12/23/24 20:16 12/23/24 20:27 12/23/24 20:31 Pulse Rate 78 77 Blood Pressure 149/89 H 134/86 Blood Pressure [Right Arm] Pulse Oximetry 99 12/23/24 20:32 12/23/24 20:37 12/23/24 20:42 Pulse Rate Blood Pressure Blood Pressure [Right Arm] Pulse Oximetry 100 98 99 12/23/24 20:46 12/23/24 20:47 12/23/24 20:52 Pulse Rate 82 Blood Pressure 139/87 Blood Pressure [Right Arm] Pulse Oximetry 99 99 12/23/24 20:57 12/23/24 21:01 12/23/24 21:02 Pulse Rate 93 Blood Pressure 143/91 H Blood Pressure [Right Arm] Pulse Oximetry 98 99 12/23/24 21:07 12/23/24 21:12 12/23/24 21:16 Pulse Rate 80 Blood Pressure 143/90 H Blood Pressure [Right Arm] Pulse Oximetry 99 98 12/23/24 21:17 12/23/24 21:22 12/23/24 21:27 Pulse Rate Blood Pressure Blood Pressure [Right Arm] Pulse Oximetry 99 98 98 12/23/24 21:31 12/23/24 21:32 12/23/24 21:37 Pulse Rate 80 Blood Pressure 124/105 H Blood Pressure [Right Arm] Pulse Oximetry 98 98 12/23/24 21:42 12/23/24 21:46 12/23/24 21:47 Pulse Rate 83 Blood Pressure 140/96 H Blood Pressure [Right Arm] Pulse Oximetry 98 99 12/23/24 21:52 12/23/24 21:57 12/23/24 22:01 Pulse Rate 82 Blood Pressure 133/90 Blood Pressure [Right Arm] Pulse Oximetry 99 98 12/23/24 22:02 12/23/24 22:03 12/23/24 22:07 Pulse Rate 85 Blood Pressure Blood Pressure [Right Arm] Pulse Oximetry 98 99 12/23/24 22:12 12/23/24 22:16 12/23/24 22:17 Pulse Rate 78 Blood Pressure 144/94 H Blood Pressure [Right Arm] Pulse Oximetry 98 99 12/23/24 22:22 12/23/24 22:27 12/23/24 22:31 Pulse Rate 81 Blood Pressure 132/84 Blood Pressure [Right Arm] Pulse Oximetry 99 99 12/23/24 22:37 12/23/24 22:42 12/23/24 22:46 Pulse Rate 78 Blood Pressure 129/74 Blood Pressure [Right Arm] Pulse Oximetry 95 94 12/23/24 22:47 12/23/24 22:52 12/23/24 22:57 Pulse Rate Blood Pressure Blood Pressure [Right Arm] Pulse Oximetry 94 94 94 12/23/24 23:01 12/23/24 23:02 12/23/24 23:07 Pulse Rate 80 Blood Pressure 125/75 Blood Pressure [Right Arm] Pulse Oximetry 94 94 12/23/24 23:12 12/23/24 23:16 12/23/24 23:17 Pulse Rate 79 Blood Pressure 127/72 Blood Pressure [Right Arm] Pulse Oximetry 94 95 12/23/24 23:22 12/23/24 23:27 12/23/24 23:31 Pulse Rate 80 Blood Pressure 129/79 Blood Pressure [Right Arm] Pulse Oximetry 96 95 12/23/24 23:32 12/23/24 23:37 12/23/24 23:42 Pulse Rate Blood Pressure Blood Pressure [Right Arm] Pulse Oximetry 96 96 96 12/23/24 23:46 12/23/24 23:50 12/23/24 23:55 Pulse Rate 82 Blood Pressure 135/85 Blood Pressure [Right Arm] Pulse Oximetry 98 97 12/24/24 00:00 12/24/24 00:05 12/24/24 00:10 Pulse Rate Blood Pressure Blood Pressure [Right Arm] Pulse Oximetry 98 98 98 12/24/24 00:27 12/24/24 00:29 12/24/24 00:34 Pulse Rate 85 Blood Pressure 157/77 H Blood Pressure [Right Arm] Pulse Oximetry 98 99 91 12/24/24 00:39 12/24/24 00:40 12/24/24 00:41 Pulse Rate 78 Blood Pressure 157/96 H Blood Pressure [Right Arm] Pulse Oximetry 96 96 12/24/24 00:45 12/24/24 00:46 12/24/24 00:50 Pulse Rate 81 78 Blood Pressure 141/102 H 148/94 H Blood Pressure [Right Arm] Pulse Oximetry 100 97 12/24/24 00:51 12/24/24 00:53 12/24/24 00:55 Pulse Rate 78 75 Blood Pressure 143/94 H 140/92 H Blood Pressure [Right Arm] Pulse Oximetry 98 12/24/24 00:56 12/24/24 00:58 12/24/24 01:00 Pulse Rate 77 74 Blood Pressure 132/85 132/88 Blood Pressure [Right Arm] Pulse Oximetry 96 12/24/24 01:03 12/24/24 01:05 12/24/24 01:06 Pulse Rate 72 71 Blood Pressure 134/75 132/73 Blood Pressure [Right Arm] Pulse Oximetry 96 12/24/24 01:08 12/24/24 01:10 12/24/24 01:11 Pulse Rate 72 71 Blood Pressure 124/70 133/78 Blood Pressure [Right Arm] Pulse Oximetry 97 12/24/24 01:13 12/24/24 01:15 12/24/24 01:16 Pulse Rate 72 75 Blood Pressure 129/72 135/79 Blood Pressure [Right Arm] Pulse Oximetry 97 12/24/24 01:18 12/24/24 01:20 12/24/24 01:21 Pulse Rate 76 76 Blood Pressure 125/79 141/78 H Blood Pressure [Right Arm] Pulse Oximetry 98 12/24/24 01:23 12/24/24 01:25 12/24/24 01:26 Pulse Rate 77 72 Blood Pressure 137/82 127/78 Blood Pressure [Right Arm] Pulse Oximetry 96 12/24/24 01:30 12/24/24 01:35 12/24/24 01:38 Pulse Rate 76 74 Blood Pressure 150/110 H 147/93 H Blood Pressure [Right Arm] Pulse Oximetry 100 96 12/24/24 01:40 12/24/24 01:41 12/24/24 01:45 Pulse Rate 76 Blood Pressure 145/87 H Blood Pressure [Right Arm] Pulse Oximetry 96 98 12/24/24 01:46 12/24/24 01:50 12/24/24 01:55 Pulse Rate 85 Blood Pressure 147/69 H Blood Pressure [Right Arm] Pulse Oximetry 94 96 12/24/24 02:00 12/24/24 02:01 12/24/24 02:05 Pulse Rate 85 Blood Pressure 140/80 Blood Pressure [Right Arm] Pulse Oximetry 93 95 12/24/24 02:10 12/24/24 02:14 12/24/24 02:16 Pulse Rate 85 Blood Pressure 143/90 H Blood Pressure [Right Arm] Pulse Oximetry 99 99 12/24/24 02:19 12/24/24 02:24 12/24/24 02:29 Pulse Rate Blood Pressure Blood Pressure [Right Arm] Pulse Oximetry 98 99 98 12/24/24 02:29 12/24/24 02:29 12/24/24 02:31 Pulse Rate 82 Blood Pressure 139/90 Blood Pressure [Right Arm] Pulse Oximetry 98 97 97 12/24/24 02:34 12/24/24 02:39 12/24/24 02:44 Pulse Rate Blood Pressure Blood Pressure [Right Arm] Pulse Oximetry 96 99 98 12/24/24 02:46 12/24/24 02:49 12/24/24 02:54 Pulse Rate 77 Blood Pressure 147/82 H Blood Pressure [Right Arm] Pulse Oximetry 96 97 12/24/24 02:59 12/24/24 03:01 12/24/24 03:04 Pulse Rate 84 Blood Pressure 142/79 H Blood Pressure [Right Arm] Pulse Oximetry 99 98 12/24/24 03:07 Pulse Rate Blood Pressure Blood Pressure [Right Arm] Pulse Oximetry 96 Exam Const: General: cooperative, healthy appearing and comfortable Nutritional Appearance: average body habitus Orientation/consciousness: oriented to person, oriented to place and oriented to time HENMT: Head: normal to inspection Resp: Effort & Inspection: normal respiratory effort Cardio: Rate: regular rate Rhythm: regular rhythm Heart sounds: S1 normal heart sound present and S2 normal heart sound present GI: Inspection: normal to inspection (Gravid soft uterus) : External Female Exam: normal external appearance Speculum Exam - Vagina: normal appearance of the vagina Speculum Exam - Cervix: normal appearance of the cervix (Cervix on admission 3cm. FHTs reassuring) H&P: Results Labs Labs: Short CBC 12/23/24 Range/Units 17:03 WBC 7.9 (4.5-10.0) K/mm3 Hgb 8.2 L D (12.0-15.0) g/dL Hct 24.2 L (37.0-47.0) % Plt Count 237 (150-375) k/mm3 BMP 12/23/24 17:03 Sodium 132 L Potassium 4.0 Chloride 109 H Carbon Dioxide 18 L BUN 22 H D Creatinine 0.93 Glucose 81 Calcium 8.5 Liver Function 12/23/24 Range/Units 17:03 Total Bilirubin 0.2 (0.2-1.3) mg/dL AST 46 H (14-36) U/L ALT 44 H (6-35) U/L Alkaline Phosphatase 148 H (38-126) U/L Albumin 2.9 L (3.5-5.1) g/dL Urine 12/23/24 Range/Units 17:03 Urine Color Yellow (Yellow) Urine Appearance Cloudy H (Clear) Urine pH 5.5 (5.0-9.0) Ur Specific [place] 1.012 (1.001-1.035) Urine Protein Trace (Negative) mg/dL Urine Glucose (UA) Negative (Negative) mg/dL Assessment and Plan Assessment and plan (1) Term : Code(s): Z34.90 - Encounter for supervision of normal , unspecified, unspecified trimester Status: Acute (2) Chronic hypertension: Code(s): I10 - Essential (primary) hypertension Status: Acute (3) induced hypertension: Code(s): O13.9 - Gestational [-induced] hypertension without significant proteinuria, unspecified trimester Status: Acute Plan Proceed with medical induction of labor. Spontaneous vaginal suspected. Epidural is in and working
--- NOTE | 2024-12-24 03:19 | PM.OBPRVD ---
OB - Vaginal Delivery Note Procedure Delivery date: 12/24/24 Events: Chronic Hypertension and Preeclampsia w/o severe features Induction method: Per Pitocin Protocol Delivery augmentation: Pitocin Delivery monitor: External FHT and External Uterine Route of delivery: Episiotomy description: None Laceration Description: None Quantitative Blood Loss (ml): 62 Anesthesia type: Epidural Disposition: Floor Complications: No immediate complications Narrative: Patient was admitted with elevated blood pressures symptoms. Pitocin augmentation was begun she spontaneously ruptured she was complete she pushed delivered head spontaneously in the DENNY position. Nuchal cord was noted tight and the clamped x2 cut the removed on the occiput anterior posterior shoulder delivered spontaneously. Cord clamped times set infant passed off the table given Apgars of 7 and 9 at 1 and 5minutes respectively placenta delivered intact spontaneously. 20units Pitocin placed in the IV to help firm the uterus. No tears or lacerations were noted. Patient tolerated the procedure well. Mom and baby doing fine at the time of dictation Baby Date of : 12/24/24 Time of : 03:07 Gestational Age by Date: 38 Infant gender: Female Weight (pounds): 6 Weight (ounces): 10 presentation: vertex position: Right Occiput Anterior Placenta delivery description: Spontaneous Cord Vessel Description: 3 Vessels, Tight and Clamped/Cut score one minute: 7 score five minutes: 9
--- NOTE | 2024-12-24 03:23 | P.DS_ITS ---
DS: Admitting Diagnosis Discharge Date 12/25/2024 Admitting Diagnosis Term /chronic hypertension/superimposed -induced hypertension DS: Discharge Diagnosis Discharge Diagnosis (1) IUP (intrauterine ), incidental: Code(s): Z33.1 - state, incidental Status: Acute (2) Term : Code(s): Z34.90 - Encounter for supervision of normal , unspecified, unspecified trimester Status: Acute (3) Chronic hypertension: Code(s): I10 - Essential (primary) hypertension Status: Acute (4) induced hypertension: Code(s): O13.9 - Gestational [-induced] hypertension without significant proteinuria, unspecified trimester Status: Acute (5) Positive testing for group B Streptococcus: Code(s): B95.1 - Streptococcus, group B, as the cause of diseases classified elsewhere Status: Acute DS: Summary Hospital Course Reason for hospitalization: Patient was admitted with the preeclampsia overlying chronic hypertension Hospital Course: Patient underwent a successful spontaneous vaginal delivery induction of labor on 12/24/2024. Her hospital course unremarkable. She remained afebrile. She was up, voiding without difficulty, eating regular diet, ambulating, generally without complaints. Time Spent with Patient Time attestation: Total time spent providing and/or coordinating discharge services: Exam Const: General: cooperative, healthy appearing and comfortable Nutritional Appearance: average body habitus Orientation/consciousness: oriented to person, oriented to place and oriented to time HENMT: Head: normal to inspection Resp: Effort & Inspection: normal respiratory effort Cardio: Rate: regular rate Rhythm: regular rhythm Heart sounds: S1 normal heart sound present and S2 normal heart sound present DS: Data Data Completed and Pending Labs on day of discharge: Labs from last 24 hours 12/23/24 12/23/24 18:54 17:03 WBC 7.9 RBC 2.66 L Hgb 8.2 L D Hct 24.2 L MCV 91.0 MCH 30.8 MCHC 33.9 RDW 12.9 Plt Count 237 MPV 8.9 Immature Gran % (Auto) 1.6 H Neut % (Auto) 69.8 Lymph % (Auto) 17.6 L [place] % (Auto) 8.2 Eos % (Auto) 2.4 Baso % (Auto) 0.4 Lymph # (Auto) 1.40 [place] # (Auto) 0.7 H Eos # (Auto) 0.2 Baso # (Auto) 0.0 Abs Immat Gran (auto) 0.13 H Absolute Neuts (auto) 5.5 Absolute Nucleated RBC 0.000 Nucleated RBC % 0.0 Sodium 132 L Potassium 4.0 Chloride 109 H Carbon Dioxide 18 L Anion Gap 5 BUN 22 H D Creatinine 0.93 Estim Creat Clear Calc Not Reportable Estimated GFR > 60 Glucose 81 Uric Acid 5.7 Calcium 8.5 Total Bilirubin 0.2 AST 46 H ALT 44 H Alkaline Phosphatase 148 H Total Protein 5.6 L Albumin 2.9 L Urine Color Yellow Urine Appearance Cloudy H Urine pH 5.5 Ur Specific [place] 1.012 Urine Protein Trace Urine Glucose (UA) Negative Urine Ketones Negative Ur Blood (Man) Negative Urine Nitrate Negative Urine Bilirubin Negative Urine Urobilinogen 0.2 Leukocyte Esterase Rfl 3+ H Urine RBC 0-2 Urine WBC 21-50 H Ur Squamous Epith Cells Few Urine Bacteria 1+ H Urine Casts 0-2 U Random Total Protein 21 Urine Creatinine 70.5 Protein/Creat Ratio 2 0.30 H Syphilis IgG/IgM Ab Non-reactive Blood Type O Positive Antibody Screen Negative Discharge Plan Discharge Attending physician on discharge: Destin Mar Discharging Clinician: Destin Mar Patient Disposition: Home Activity: may shower, no straining and pelvic rest Diet: heart healthy Wound Care Instructions: follow printed instructions Discharge Instructions: Education: Mom and Baby Guide Given to: Mother Follow-Up: Call your delivering provider's office for an appointment to be seen. Mom and baby should come to the [facility] for the follow-up appointment. Appointment Date/Time: December 28, 2024 at 9:00 am What to expect at your follow-up visit: Blood Pressure Check and Physical Assessment Call [phone] if you are unable to keep your appointment time. BREAST CARE: * Wear a snug supportive bra. * For engorgement discomfort: Breast Feeding: * Apply warm moist washcloths * Express milk as needed to relieve engorgement * Wear loose clothing * For sore nipples: * Identify correct latch-on * Apply warm moist washcloths before and after nursing * Air dry nipples after nursing * May apply Lansinoh cream to nipples PERINEAL CARE: * Until bleeding stops, use your fam bottle after urinating * Change your pad frequently throughout the day * You may take sitz baths several times a day (fill your bathtub with warm water and soak for 20 minutes.) Do NOT bathe in the water * No tub baths until seen by your physician - You may shower ACTIVITY: * Rest as much as possible. * Do not exercise or lift anything heavier than your baby (such as laundry or other children.) * Avoid stairs or driving as much as possible. * Do not put anything into the vagina. No douching, tampons, or sexual activity until seen by physician. NOTIFY PHYSICIAN IF YOU HAVE ANY QUESTIONS OR IF ANY OF THE FOLLOWING SYMPTOMS OCCUR: * If your perineum becomes red, swollen, or more painful than what you have experienced in the hospital. * If your vaginal bleeding becomes foul smelling. * If your vaginal bleeding becomes more heavy than a period or if your bleeding changes from pink to bright red. However, you may pass an occasional walnut- sized clot once or twice for the first week . * If you experience a sharp, shooting pain in you calves. * If you discover a hard, reddened area on your breast or if you experience flu- like symptoms. DIET: * Eat regular, well-balanced meals. * Drink plenty of fluids daily. Patient Language: Lao Stand Alone Forms: General Discharge Information Follow-up/Referrals: Destin Mar MD [Physician] - Discharge Medications: Continued labetalol 100 mg tablet 200 mg PO Q12H PNV cmb#95-ferrous fumarate-FA [] 28 mg iron- 800 mcg tablet 1 tablet PO DAILY Date of admission: 12/23/24 17:35 Primary Care Provider: HakeemAntonietta Admitting Provider: Destin Mar Attending physician on admission: Destin Mar Condition: Stable
[2024-12-24] MEDS: OXYTOCIN 30 UNITS/NS 500 ML 30 UNITS/500 ML BAG 125 UNITS IV CONT (03:45)
[2024-12-24] MEDS: ACETAMINOPHEN 325 MG TABLET 650 MG PO (04:40)
[2024-12-24] MEDS: IBUPROFEN 600 MG TABLET PO ×3 (04:40→17:43)
--- NOTE | 2024-12-24 04:50 | LDADM ---
This patient, Rachael Mosquera, was admitted to Labor/Delivery/Recovery 108 on 12/23/24 at 17:35. Plans for labor, pain management and were discussed with patient. Patient/family oriented to hospital policies and general routines including ID bracelet, bed and alarms, visiting hours, pain management, procedures, bathroom and other care routines, personal items, smoking policy, room service/diet and guest tray routines, security routines, and visiting hours. Patient/Family are encouraged to report perceived risks to care and to ask questions if they do not understand what they are told or what they should do. See OBIX for further documentation.
[2024-12-24] MEDS: WITCH HAZEL 40 PADS 1 PAD TOPICAL (06:09)
[2024-12-24] MEDS: BENZOCAINE 20% AER SPR (*SP) 56 GM CAN 1 SPRAY TOPICAL (06:09)
[2024-12-24] MEDS: MULTIVIT/MIN/PREN/FOL AC/IRON TABLET 1 TAB PO (09:27)
[2024-12-24] MEDS: LABETALOL HCL 100 MG TABLET 200 MG PO ×2 (09:27→20:37)
[2024-12-24] MEDS: DOCUSATE SODIUM 100 MG CAPSULE PO ×2 (09:28→17:44)
[2024-12-24] MEDS: POLYSACCHARIDE IRON COMPLEX 150 MG CAPSULE PO ×2 (09:28→17:44)
--- NOTE | 2024-12-24 10:05 | PC.NURSE ---
Introductions were made, then consulted with patient to assess needs related to . Mother led the conversation with her?plans to feed?her and the?experience so far. Mother plans on only , infant is on glucose checks before feedings for 24 hours. CLC encouraged understanding of the benefits of skin to skin (demonstrating unwrapping infant and placing upright on her chest), stimulating with massage touch, changing positions to encourage wakefulness, how to watch for early feeding cues, responsive feeding, feeding on demand (aiming for 8-12 times in 24 hours, about every 2-3 hours), milk production, building/maintaining a milk supply, duration of feeding, signs of adequate intake/output and how to record on the feeding sheet. Mother works well with her infant with encouragement and education. Reviewed positioning and ear, shoulder, hip alignment, supporting the breast to facilitate a deep latch, asymmetrical latch (off-center), leading with the chin with a big, open, wide gape and body close to mother. Infant latched optimally to the [left] breast in [cross cradle] position. Education given to the mother of how to visualize the suckling (with good rocking jaw motion), swallows (dropping of the lower jaw) and how to listen for drinking at the breast (the ka sound). Infant was [able] to maintain latch without pain to mother protecting the nipple with optimal positioning and latching for only a few minutes. Reviewed comfort measures of healing with a warm, wet washcloth to rinse breast, then leave open to air-dry, good handwashing when or touching the breast/nipples to prevent infection. Mother voiced understanding of skin to skin, stimulating with massage touch, responsive feedings, hand expressed colostrum, talking to infant to encourage if it has been 2 -2.5 hours since the start of the last , to call if does not latch, or if there is discomfort with . Resources used for education were facilitated with the [visual educational handouts/ tool/mom and baby guide], Inpatient/outpatient resources provided with business card, feeding sheet, name written on the communication board, and the mom/baby guide. Parents voiced understanding of information, demonstrated learning and will call if there is a request for assistance. Reported to the Primary RN.
--- NOTE | 2024-12-24 16:11 | PC.NURSE ---
1200-Mother failed to call out for blood sugar check; RN re-informed mother that she needs to call before each feeding. RN reiterated this information also.
--- NOTE | 2024-12-24 16:13 | PC.NURSE ---
1545-Mother failed to call out for blood sugar check. RN informed mother why we were doing blood sugar checks and reminded her again that we need her to call on the call light for this before each feeding.
--- NOTE | 2024-12-25 05:08 | P.PNOB_ITS ---
OB - PN: Subj Subjective Date/time seen: 12/25/24 05:08 Patient comments: no complaints and tolerating diet [place] baby status: doing well OB - PN: Obj Data Labs 12/23/24 17:03 12/23/24 17:03 OB - PN A/P Assessment and Plan (1) IUP (intrauterine ), incidental: Code(s): Z33.1 - state, incidental Status: Acute (2) Term : Code(s): Z34.90 - Encounter for supervision of normal , unspecified, unspecified trimester Status: Acute (3) Positive testing for group B Streptococcus: Code(s): B95.1 - Streptococcus, group B, as the cause of diseases classified elsewhere Status: Acute Plan Comments: begin iron Time Spent With Patient Time: Total time spent is greater than 50% in coordination of care (as documented) at patient's floor/unit and/or counseling patient: Review of Systems 2 Constitutional: Constitutional: Denies weakness ENT: Reports nasal congestion and Reports sore throat Cardiovascular: Cardiovascular: Denies syncope, Denies rapid heart rate, Denies irregular heart rhythm, Denies leg edema and Denies dyspnea Respiratory: Respiratory: Denies chest congestion, Denies hemoptysis, Denies excessive phlegm production and Denies dyspnea Gastrointestinal: Gastrointestinal: Denies abdominal pain, Denies hematochezia, Denies diarrhea and Denies vomiting Genitourinary: Genitourinary: Denies hematuria and Denies dysuria Musculoskeletal: Musculoskeletal: Denies joint swelling, Denies loss of height and Denies muscle weakness Neurologic: Denies syncope, Denies focal weakness and Denies weakness Exam 2 Const: General: cooperative, healthy appearing and comfortable Nutritional Appearance: average body habitus Orientation/consciousness: oriented to person, oriented to place and oriented to time Resp: Effort & Inspection: normal respiratory effort Cardio: Rate: regular rate Rhythm: regular rhythm Heart sounds: S1 normal heart sound present and S2 normal heart sound present GI: Inspection: normal to inspection
[2024-12-25 05:32] LABS: Hematocrit 24.6 % (37.0-47.0)
--- NOTE | 2024-12-25 07:46 | WPDANLDPN2 ---
Anes-Prog Note L&D Date/Time: 12/25/24 07:46 Comfortable throughout: labor and delivery Neuraxial method: epidural Epidural/Spinal procedure site: clean & non-tender Neuro status: Neuro function grossly intact. Cardiovascular status: normal Respiratory status: normal Airway patency: baseline Mental status: baseline Vital Signs: Last Vital Signs Temp 36.8 C 12/24/24 20:30 Pulse 70 12/24/24 20:37 Resp 16 12/24/24 20:30 BP 127/88 12/24/24 20:30 Pulse Ox 100 12/24/24 20:30 O2 Del Method Room Air 12/24/24 08:00 Pain score (VAS): 0 I/O: Intake & Output 12/24/24 12/24/24 12/25/24 15:59 23:59 07:59 Intake Total 1000 500 Output Total 400 Balance -400 1000 500 Patient feedback: Patient satisfied with anesthetic care.
[2024-12-25 08:50] VITALS: BP 126/80; PULSE 77; RESP 18; TEMP 37.2; O2SAT 98
[2024-12-25] MEDS: POLYSACCHARIDE IRON COMPLEX 150 MG CAPSULE PO (10:13)
[2024-12-25] MEDS: MULTIVIT/MIN/PREN/FOL AC/IRON TABLET 1 TAB PO (10:13)
[2024-12-25] MEDS: DOCUSATE SODIUM 100 MG CAPSULE PO (10:13)
[2024-12-25 10:14] VITALS: PULSE 80
[2024-12-25] MEDS: LABETALOL HCL 100 MG TABLET 200 MG PO (10:14)
[2024-12-25] MEDS: LANOLIN (LANSINOH) 7.5 GM CREAM 1 APPLIC TOPICAL (10:15)
[2024-12-28 09:23] VITALS: BP 179/97; PULSE 66; RESP 18; TEMP 36.8; O2SAT 98
== END 2024-12-25 12:56 | disposition home or self-care (01) | DRG 560 ==
LOC: ANHOBOP 17:47 → ANHLDR 17:47 → ANHOB2 12-24 06:15
PROVIDERS: Admitting Provider Obstetrics & Gynecology; PCP Physician Assistant; Visit Provider Obstetrics & Gynecology
DX: O11.4 Pre-existing hypertension with pre-eclampsia, complicating childbirth (principal); Z37.0 Single live birth; Z3A.38 38 weeks gestation of pregnancy; O62.3 Precipitate labor; O69.1XX0 Labor and delivery complicated by cord around neck, with compression, not applicable or unspecified
CPT/HCPCS: 36415; 80053; 81001; 82570; 84156; 84550; 85014; 85018; 85025; 86593; 86850; 86900; 86901; 87086; A9270; J0690; J2405; J2590; J2795; J7120

== ENCOUNTER 2025-01-01 15:48 | Observation (INO) | payer OTHER, SELFPAY ==
[2025-01-01] VITALS (76 sets, daily range): BP systolic 140–202; BP diastolic 81–109; PULSE 61–102; RESP 18; TEMP 36.8; O2SAT 91–99; BMI 31.8
--- NOTE | 2025-01-01 13:26 | PC.NURSE ---
Called Dr. Armand Bridges with lab results and BP 188/102 1 hour after PO 200 mg labetalol given. Orders received to give Procardia XL 30 mg and recheck BP in an hour.
--- NOTE | 2025-01-01 13:26 | PC.NURSE ---
Dr. Boss notified of pt. elevated BP. Last dose labatelol was at 0630 this morning. Orders received for hypertension labs. Give one dose of labatelol 200 mg and recheck BP in an hour.
[2025-01-01 13:28] LABS: Basophils Absolute Auto 0.1 K/mm3 (0.0-0.1); Eosinophils Absolute Auto 0.1 K/mm3 (0-0.3); Eosinophils Percent Auto 1.4 % (0-4.4); Hematocrit 26.7 % (37.0-47.0); Hemoglobin 8.9 g/dL (12.0-15.0); Immature Granulocyte Absolute 0.03 K/mm3 (0.00-0.031); Immature Granulocyte Percent A 0.4 % (0-0.5); Lymphocytes Absolute Auto 1.51 K/mm3 (0.9-3.2); Lymphocytes Percent Auto 19.1 % (18.3-44.2); Mean Corpuscular HGB Conc 33.3 g/dl (32-36); Mean Corpuscular Hemoglobin 30.8 pg (26-34); Mean Corpuscular Volume 92.4 fl (80-100); Mean Platelet Volume 8.3 fl (7.4-10.4); Monocytes Absolute Auto 0.5 K/mm3 (0.1-0.6); Monocytes Percent Auto 6.6 % (2.6-8.5); Neutrophils Absolute Auto 5.7 K/mm3 (1.3-6.7); Neutrophils Percent Auto 71.5 % (45.5-73.1); Platelet Count Result 411 k/mm3 (150-375); Red Blood Count 2.89 M/mm3 (4.2-5.4); Red Cell Distribution Width 13.7 % (11.5-14.5); White Blood Count 7.9 K/mm3 (4.5-10.0)
[2025-01-01] MEDS: LABETALOL HCL 100 MG TABLET 200 MG PO (13:39)
[2025-01-01 13:43] LABS: Alanine Aminotransferase 42 U/L (6-35); Albumin Level 3.8 g/dL (3.5-5.1); Alkaline Phosphatase 107 U/L (38-126); Anion Gap 8 mmol/L (4-12); Aspartate Amino Transferase 31 U/L (14-36); Bilirubin,Total 0.3 mg/dL (0.2-1.3); Blood Urea Nitrogen 13 mg/dL (7-17); Calcium 9.1 mg/dL (8.4-10.2); Carbon Dioxide 24 mmol/L (22-30); Chloride 107 mmol/L (98-107); Estimated Glomerular Filt Rate > 60; Glucose 93 mg/dL (65-110); Potassium 3.9 mmol/L (3.4-5.0); Sodium 139 mmol/L (137-145); Total Protein 6.6 g/dL (6.3-8.2)
--- NOTE | 2025-01-01 14:48 | PC.NURSE ---
Dr. Armand leon returned page. Updated on lab results and BP 188/102 1 hour after labetalol 200 mg PO given. Order received to give procardia xl 30 mg x1 and recheck BP in one hour.
[2025-01-01] MEDS: lisinopriL 20 MG TABLET PO (15:18)
[2025-01-01] MEDS: LABETALOL HCL INJ 100 MG/20 ML VIAL 20 MG IV PUSH (16:01)
[2025-01-01] MEDS: LABETALOL HCL INJ 100 MG/20 ML VIAL 40 MG IV PUSH (16:14)
[2025-01-01] MEDS: LACTATED RINGERS 1,000 ML 50 ML IV CONT (16:15)
[2025-01-01] MEDS: LABETALOL HCL INJ 100 MG/20 ML VIAL 80 MG IV PUSH (16:29)
[2025-01-01] MEDS: hydrALAZINE HCL 20 MG/ML VIAL 10 MG IV PUSH (16:46)
[2025-01-01] MEDS: NIFEdipine 30 MG TAB.ER.24 PO (17:43)
--- NOTE | 2025-01-01 17:43 | PC.NURSE ---
Dr. Goss updated on pt. background, reason for admission, and interventions done this far for hypertension. Orders received for one dose of 30 mg Procardia XL to be given now. Increase home dose of PO labetalol to 300 mg and give 300 mg at next scheduled dose time (2200). Observe overnight, monitoring vitals q1h.
[2025-01-01] MEDS: ACETAMINOPHEN 500 MG TABLET 1000 MG PO (20:17)
[2025-01-01] MEDS: LABETALOL HCL 100 MG TABLET 300 MG PO (22:50)
[2025-01-02] VITALS (10 sets, daily range): BP systolic 138–151; BP diastolic 93–98; PULSE 80–85; TEMP 36.6–36.7
[2025-01-02] MEDS: IBUPROFEN 600 MG TABLET PO (01:38)
[2025-01-02 05:42] LABS: Alanine Aminotransferase 36 U/L (6-35); Albumin Level 3.7 g/dL (3.5-5.1); Alkaline Phosphatase 106 U/L (38-126); Anion Gap 9 mmol/L (4-12); Aspartate Amino Transferase 31 U/L (14-36); Bilirubin,Total 0.4 mg/dL (0.2-1.3); Blood Urea Nitrogen 12 mg/dL (7-17); Calcium 9.2 mg/dL (8.4-10.2); Carbon Dioxide 21 mmol/L (22-30); Chloride 108 mmol/L (98-107); Estimated CRCL calculation 88 ml/min; Estimated Glomerular Filt Rate > 60; Glucose 90 mg/dL (65-110); Sodium 138 mmol/L (137-145); Total Protein 6.7 g/dL (6.3-8.2)
[2025-01-02] MEDS: LABETALOL HCL 100 MG TABLET 300 MG PO (06:46)
--- NOTE | 2025-01-02 09:14 | PM.OBTRLD ---
OB - Triage/Final Diagnosis Visit Information Date of evaluation: 01/02/25 Reason for evaluation: other (CHTN with likely pp superimposed preeclampsia) Comments/Additional reasons for admission: The patient is 8 days and noted elevated blood pressures home in 160s range. Patient had chronic hypertension and was on labetalol 200mg 3 times daily. Blood pressures on arrival were elevated and reached a high of 200/112. The patient was initially given p.o. labetalol followed by IV labetalol protocol and IV hydralazine. In addition the patient was given lisinopril 15mg. At that time I took over call from Dr. Mireles, the patient continued elevated blood pressures and I gave the patient 30 XL of Procardia. In addition I adjusted her labetalol [id number] 3 times daily. Since that time blood pressures have been in the 140s over 80s and 90s. Patient has slight headache with no other symptoms. Labs were stable. The patient will be discharged on the new blood pressure regimen I have assessed the risk for this patient, Rachael Mosquera, and determined that she would benefit from observation care. Evaluation Laboratory results: Laboratory Tests 01/01/25 01/02/25 13:15 05:25 WBC 7.9 RBC 2.89 L Hgb 8.9 L Hct 26.7 L MCV 92.4 MCH 30.8 MCHC 33.3 RDW 13.7 Plt Count 411 H D MPV 8.3 Immature Gran % (Auto) 0.4 Neut % (Auto) 71.5 Lymph % (Auto) 19.1 Parker % (Auto) 6.6 Eos % (Auto) 1.4 Baso % (Auto) 1.0 Lymph # (Auto) 1.51 Parker # (Auto) 0.5 Eos # (Auto) 0.1 Baso # (Auto) 0.1 Abs Immat Gran (auto) 0.03 Absolute Neuts (auto) 5.7 Absolute Nucleated RBC 0.000 Nucleated RBC % 0.0 Sodium 139 138 Potassium 3.9 4.0 Chloride 107 108 H Carbon Dioxide 24 21 L Anion Gap 8 9 BUN 13 D 12 Creatinine 0.77 0.73 Estim Creat Clear Calc Not Reportable 88 Estimated GFR > 60 > 60 Glucose 93 90 Uric Acid 5.0 Calcium 9.1 9.2 Total Bilirubin 0.3 0.4 AST 31 31 ALT 42 H 36 H Alkaline Phosphatase 107 106 Total Protein 6.6 6.7 Albumin 3.8 3.7 Vital signs: Vital Signs - 24 hr 01/01/25 13:06 01/01/25 13:06 01/01/25 13:10 Temperature Pulse Rate 70 70 Respiratory Rate Blood Pressure 186/95 H Blood Pressure [Left Arm] 186/95 H Pulse Oximetry 96 Oxygen Delivery 01/01/25 13:15 01/01/25 13:20 01/01/25 13:25 Temperature Pulse Rate 66 Respiratory Rate Blood Pressure 176/98 H Blood Pressure [Left Arm] Pulse Oximetry 95 98 96 Oxygen Delivery 01/01/25 13:30 01/01/25 13:35 01/01/25 13:39 Temperature Pulse Rate 71 74 Respiratory Rate Blood Pressure 175/95 H Blood Pressure [Left Arm] Pulse Oximetry 96 99 Oxygen Delivery 01/01/25 13:40 01/01/25 13:45 01/01/25 13:50 Temperature Pulse Rate 72 Respiratory Rate Blood Pressure 170/93 H Blood Pressure [Left Arm] Pulse Oximetry 98 94 97 Oxygen Delivery 01/01/25 13:57 01/01/25 14:00 01/01/25 14:02 Temperature Pulse Rate 61 Respiratory Rate Blood Pressure 180/105 H Blood Pressure [Left Arm] Pulse Oximetry 98 99 Oxygen Delivery 01/01/25 14:07 01/01/25 14:12 01/01/25 14:15 Temperature Pulse Rate 62 Respiratory Rate Blood Pressure 192/97 H Blood Pressure [Left Arm] Pulse Oximetry 91 99 Oxygen Delivery 01/01/25 14:17 01/01/25 14:22 01/01/25 14:27 Temperature Pulse Rate Respiratory Rate Blood Pressure Blood Pressure [Left Arm] Pulse Oximetry 96 95 96 Oxygen Delivery 01/01/25 14:30 01/01/25 14:32 01/01/25 14:37 Temperature Pulse Rate 67 Respiratory Rate Blood Pressure 190/104 H Blood Pressure [Left Arm] Pulse Oximetry 98 98 Oxygen Delivery 01/01/25 14:42 01/01/25 14:44 01/01/25 14:47 Temperature Pulse Rate 70 Respiratory Rate Blood Pressure 188/102 H Blood Pressure [Left Arm] Pulse Oximetry 96 96 Oxygen Delivery 01/01/25 14:52 01/01/25 14:57 01/01/25 15:00 Temperature Pulse Rate 65 Respiratory Rate Blood Pressure 202/100 H Blood Pressure [Left Arm] Pulse Oximetry 98 97 Oxygen Delivery 01/01/25 15:02 01/01/25 15:10 01/01/25 15:15 Temperature Pulse Rate 68 70 Respiratory Rate Blood Pressure 199/100 H 193/105 H Blood Pressure [Left Arm] Pulse Oximetry 97 98 97 Oxygen Delivery 01/01/25 15:20 01/01/25 15:25 01/01/25 15:30 Temperature Pulse Rate 66 Respiratory Rate Blood Pressure 202/102 H Blood Pressure [Left Arm] Pulse Oximetry 98 98 97 Oxygen Delivery 01/01/25 15:35 01/01/25 15:40 01/01/25 15:45 Temperature Pulse Rate Respiratory Rate Blood Pressure Blood Pressure [Left Arm] Pulse Oximetry 97 97 95 Oxygen Delivery 01/01/25 15:50 01/01/25 15:55 01/01/25 16:00 Temperature Pulse Rate 66 Respiratory Rate Blood Pressure 198/106 H Blood Pressure [Left Arm] Pulse Oximetry 98 99 98 Oxygen Delivery 01/01/25 16:01 01/01/25 16:13 01/01/25 16:14 Temperature Pulse Rate 62 71 71 Respiratory Rate Blood Pressure 194/107 H Blood Pressure [Left Arm] Pulse Oximetry Oxygen Delivery 01/01/25 16:20 01/01/25 16:25 01/01/25 16:29 Temperature Pulse Rate 71 75 75 Respiratory Rate Blood Pressure 192/102 H 186/103 H Blood Pressure [Left Arm] Pulse Oximetry Oxygen Delivery 01/01/25 16:30 01/01/25 16:35 01/01/25 16:40 Temperature Pulse Rate 78 70 69 Respiratory Rate Blood Pressure 175/109 H 174/105 H 173/103 H Blood Pressure [Left Arm] Pulse Oximetry Oxygen Delivery 01/01/25 16:41 01/01/25 16:45 01/01/25 16:50 Temperature Pulse Rate 70 72 70 Respiratory Rate Blood Pressure 162/103 H 176/105 H 175/103 H Blood Pressure [Left Arm] Pulse Oximetry Oxygen Delivery 01/01/25 16:55 01/01/25 17:00 01/01/25 17:05 Temperature Pulse Rate 75 74 79 Respiratory Rate Blood Pressure 166/98 H 155/91 H 162/95 H Blood Pressure [Left Arm] Pulse Oximetry Oxygen Delivery 01/01/25 17:10 01/01/25 17:15 01/01/25 17:20 Temperature Pulse Rate 83 82 78 Respiratory Rate Blood Pressure 153/97 H 150/94 H 158/95 H Blood Pressure [Left Arm] Pulse Oximetry Oxygen Delivery 01/01/25 17:25 01/01/25 17:30 01/01/25 17:35 Temperature Pulse Rate 73 80 78 Respiratory Rate Blood Pressure 152/88 H 150/99 H 147/100 H Blood Pressure [Left Arm] Pulse Oximetry Oxygen Delivery 01/01/25 17:40 01/01/25 17:45 01/01/25 17:50 Temperature Pulse Rate 102 H 94 91 Respiratory Rate Blood Pressure 150/89 H 147/91 H 148/98 H Blood Pressure [Left Arm] Pulse Oximetry Oxygen Delivery 01/01/25 17:55 01/01/25 18:00 01/01/25 18:30 Temperature Pulse Rate 90 87 83 Respiratory Rate Blood Pressure 154/100 H 150/99 H 154/98 H Blood Pressure [Left Arm] Pulse Oximetry Oxygen Delivery 01/01/25 19:00 01/01/25 19:30 01/01/25 20:00 Temperature Pulse Rate 78 92 68 Respiratory Rate Blood Pressure 144/86 H 148/97 H 146/81 H Blood Pressure [Left Arm] Pulse Oximetry Oxygen Delivery 01/01/25 20:00 01/01/25 20:00 01/01/25 21:00 Temperature 98.2 F Pulse Rate 78 68 Respiratory Rate 18 Blood Pressure 163/87 H Blood Pressure [Left Arm] Pulse Oximetry Oxygen Delivery Room Air 01/01/25 21:21 01/01/25 22:01 01/01/25 22:50 Temperature Pulse Rate 73 87 87 Respiratory Rate Blood Pressure 149/85 H 146/91 H Blood Pressure [Left Arm] Pulse Oximetry Oxygen Delivery 01/01/25 23:00 01/02/25 01:00 01/02/25 01:24 Temperature 97.9 F Pulse Rate 84 83 Respiratory Rate Blood Pressure 140/87 146/94 H Blood Pressure [Left Arm] Pulse Oximetry Oxygen Delivery 01/02/25 01:25 01/02/25 05:21 01/02/25 05:33 Temperature 98.1 F Pulse Rate 85 84 Respiratory Rate Blood Pressure 141/96 H 148/97 H Blood Pressure [Left Arm] Pulse Oximetry Oxygen Delivery 01/02/25 06:44 01/02/25 06:45 01/02/25 06:46 Temperature Pulse Rate 82 84 80 Respiratory Rate Blood Pressure 151/98 H 144/97 H 146/98 H Blood Pressure [Left Arm] Pulse Oximetry Oxygen Delivery 01/02/25 06:46 01/02/25 06:50 01/02/25 08:50 Temperature 97.9 F Pulse Rate 84 82 Respiratory Rate Blood Pressure 138/93 H Blood Pressure [Left Arm] Pulse Oximetry Oxygen Delivery Final Diagnosis (1) Chronic hypertension with superimposed preeclampsia: Code(s): O11.9 - Pre-existing hypertension with pre-eclampsia, unspecified trimester Status: Acute (2) anemia: Code(s): O90.81 - Anemia of the puerperium Status: Acute Plan: Continue iron. Hemoglobin is elevated from discharge 8 days ago
== END 2025-01-02 09:41 | disposition home or self-care (01) ==
LOC: ANHOBOP 01-04 07:54 → ANHOBPP 01-04 07:56
PROVIDERS: Admitting Provider Obstetrics & Gynecology; PCP Physician Assistant; Visit Provider Obstetrics & Gynecology
DX: O11.5 Pre-existing hypertension with pre-eclampsia, complicating the puerperium (principal); O10.93 Unspecified pre-existing hypertension complicating the puerperium; O90.81 Anemia of the puerperium; D64.9 Anemia, unspecified; Z79.899 Other long term (current) drug therapy
CPT/HCPCS: 36415; 80053; 84550; 85025; 96374; 96375; 99199; A9270; G0378; G0379; J0360; J7120